=== PATIENT | male | born 1990 | race Caucasian/White ===

== ENCOUNTER 2024-08-06 14:45 | Emergency (ER) | payer OTHER, SELFPAY ==
[2024-08-06 14:55] VITALS: BP 182/100
[2024-08-06] MEDS: PERCOCET 5/325 1 TABLET PO (16:33)
[2024-08-06] MEDS: TORADOL 60 MG IM (16:34)
--- NOTE | 2024-08-06 16:43 | ED.GENMED ---
History of Present Illness
General
Chief Complaint: Back Pain
Source: patient
Exam Limitations: none
Time Seen by Provider: 08/06/24 16:16
Nursing documentation reviewed up to this point in time: agreed with
History of Present Illness
History of Present Illness:
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
Past History
Past History
ED Past Medical History: None
Social History
Tobacco: Non-smoker
Alcohol: None
Drug: None
Personal: Single
Living: with family
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
Review of Systems
Review of Systems
All Other Systems: Not applicable
Constitutional: Denies fever
ABD/GI: Reports no symptoms
: Denies dysuria, flank pain or bleeding
Musculoskeletal: Reports back pain
Neurological: Reports no symptoms
Hematologic/Lymphatic: Reports no symptoms
Phy Exam
Physical Exam
Physical Exam:
Physical Exam
General: 34 male looks uncomfortable but nontoxic
Neck: No jaundice
Heart: Regular
Lungs: no acute respiratory distress.
Neuro: alert and oriented. no focal neurological deficits painful straight leg raise on the right at 30 degrees
Skin: no rash
Psychiatric: well kept. interactive and cooperative
Extremities: no edema
Course
Orders/Labs/Results
Orders:
Orders
08/06/24 16:27
Ketorolac [Toradol] 60 mg IM NOW STA
Oxycodone/Acetaminophen [Percocet 5/325] 1 tablet PO NOW STA
Lumbar Spine, 2 or 3 View [CR Lumbar Spine 2 Or 3 Views] Urgent
Comment:
Reason For Exam: pain
08/06/24 17:19
Urinalysis Reflex To Culture Urgent
Date Specimen was Collected: 08/06/24
Time Specimen was Collected: 16:43
Abnormal Lab Results
08/06/24
17:19
Urine Ketones Trace A
(Negative)
Urine Bilirubin 1+ A
(Negative)
Vital Signs
Initial and Last Documented VS:
Initial Vital Signs
Temp Pulse Resp BP Pulse Ox
98.3 F 108 18 182/100 99
08/06/24 14:55 08/06/24 14:55 08/06/24 14:55 08/06/24 14:55 08/06/24 14:55
Last Documented Vital Signs
Temp Pulse Resp BP Pulse Ox
98.3 F 108 18 162/106 99
08/06/24 14:55 08/06/24 14:55 08/06/24 14:55 08/06/24 17:31 08/06/24 14:55
MDM/Problems Addressed
Differential Diagnosis Includes:
Sciatica lumbar radiculopathy strain strain no signs of cauda equina discitis by history physical
MDM/Problems Addressed:
Low back pain
*Radiology
Radiology exam reviewed: preliminary read by ED provider
*Pulse Oximetry
Patient hypoxic: no
*Critical Care Note
Total Time (30-74mins, 75-104mins- exclusive of procedures): Not Applicable
Update Note
Update Note:
Update x-ray noted patient feeling better
ED Attending Note
-
Portions of this chart may have been created with voice recognition software.� Occasional wrong word or��sound alike� substitutions may have occurred due to the inherent limitations of voice recognition software.
Discharge Plan
Departure
Patient Disposition: Home (Routine Discharge)
Patient with high blood pressure during this ER visit?: No
Condition: Good
Discharge Problem:
Low back pain
Instructions: Low Back Pain (DC), Radiculopathy (DC)
Prescriptions:
New
ibuprofen 600 mg tablet
600 mg PO Q6H PRN (Reason: Pain) Qty: 20 0RF
metaxalone 800 mg tablet
800 mg PO TID PRN (Reason: muscle pain) Qty: 14 0RF
No Action
amoxicillin-pot clavulanate 1 TABLET tablet
1 tab PO Q12 Qty: 14 0RF
Referrals:
Harjeet Chan DO [Active] - Next open appointment
Willy López DO [Family Provider] - Next open appointment
Stand Alone Forms: Return to Work
Interventions
Interventions:
*Risk Screen - Suicide Last Done: 08/06/24 14:55
*General Assessment Last Done: 08/06/24 14:55
*Neglect/Abuse Screening Last Done: 08/06/24 14:55
ED- Fall Risk Assessment Last Done: 08/06/24 17:32
*ED COVID-19 Vaccine History Last Done: 08/06/24 17:32
*Nursing Disposition Last Done: 08/06/24 17:35
ED-Musculoskeletal Assessment Last Done: 08/06/24 17:35
Discharge Date and Time
Discharge Date/Time: 08/06/24 17:39
Print Language: NIGERIAN
[2024-08-06 17:26] LABS: Urine Albumin Trace (Neg - Trace); Urine Bilirubin 1+ (Negative); Urine Character Clear (Clear); Urine Color Yellow; Urine Glucose Negative (Negative); Urine Ketone Trace (Negative); Urine Leukocyte Negative (Negative); Urine Nitrite Negative (Negative); Urine Occult Blood Negative (Negative); Urine Specific Gravity 1.025 (<1.030); Urine Urobilinogen Negative (Neg - 1+)
[2024-08-06 17:31] VITALS: BP 162/106
== END 2024-08-06 17:39 | disposition home or self-care (01) ==
LOC: EMR 14:45
PROVIDERS: EMERGENCY PHYSICIAN Emergency Medicine; FAMILY PHYSICIAN Family Medicine
DX: M54.50 Low back pain, unspecified (principal)
CPT/HCPCS: 96372; 99284; 72100; 81003